=== PATIENT | female | born 1965 | race Caucasian/White ===

== ENCOUNTER 2017-04-01 12:17 | Emergency (ER) | payer OTHER ==
[2017-04-01 13:16] VITALS: BP 129/63
--- NOTE | 2017-04-01 14:47 | UC ---
Throat Pain/Nasal Ricardo HPI - HPI Summary HPI Summary: PRODUCTIVE COUGH SORE THROAT, EAR ACHE, CONGESTION, FOR TWO MONTHS. SMOKER, TRYING TO QUIT. NO FEVER. - History of Current Complaint Chief Complaint: UCRespiratory Stated Complaint: URI Time Seen by Provider: 04/01/17 13:20 Hx Obtained From: Patient Hx Last Menstrual Period: 2 months ago Onset/Duration: Gradual Onset, Lasting Weeks, Still Present Severity: Moderate Pain Intensity: 0 Pain Scale Used: 0-10 Numeric Cough: Productive Associated Signs & Symptoms: Positive: Hoarseness, Sinus Discomfort, Nasal Discharge - Epiglottits Risk Factors Epiglottis Risk Factors: Negative - Allergies/Home Medications Allergies/Adverse Reactions: Allergies Allergy/AdvReac Type Severity Reaction Status Date / Time Acesulfame Potassium Allergy Intermediate Unknown Verified 04/01/17 13:11 [From Suboxone] Reaction Details Buprenorphine [From Suboxone] Allergy Intermediate Unknown Verified 04/01/17 13: 11 Reaction Details Naloxone [From Suboxone] Allergy Intermediate Unknown Verified 04/01/17 13:11 Reaction Details novacaine Allergy Intermediate Unknown Uncoded 04/01/17 13:11 Reaction Details Home Medications: Home Medications Gabapentin CAP(*) [Neurontin 300 CAP(*)] 04/01/17 [History] PMH/Surg Hx/FS Hx/Imm Hx Previously Healthy: Yes - Surgical History Surgical History: Yes Surgery Procedure, Year, and Place: - Family History Known Family History: Negative: Cardiac Disease, Hypertension, Diabetes - Social History Occupation: Employed Part-time Lives: With Family Alcohol Use: None Substance Use Type: None Substance Use Comment - Amount & Last Used: "recovering heroin addict" last use 12/01/14 Smoking Status (MU): Current Every Day Smoker Amount Used/How Often: 1/2 PPD Review of Systems Constitutional: Negative Skin: Negative Eyes: Negative ENT: Ear Ache, Nasal Discharge, Sinus Congestion, Sinus Pain/Tenderness Respiratory: Cough Cardiovascular: Negative Gastrointestinal: Negative Genitourinary: Negative Motor: Negative Neurovascular: Negative Musculoskeletal: Negative Neurological: Negative Psychological: Negative Is Patient Immunocompromised?: No All Other Systems Reviewed And Are Negative: Yes Physical Exam Triage Information Reviewed: Yes Appearance: Well-Appearing, Well-Nourished Vital Signs: Initial Vital Signs Temp 98.3 F 04/01/17 13:12 Pulse 93 04/01/17 13:12 Resp 16 04/01/17 13:12 BP 129/63 04/01/17 13:12 Pulse Ox 100 04/01/17 13:12 Vital Signs Reviewed: Yes Eye Exam: Normal ENT: Positive: Hearing grossly normal, Pharynx normal, Nasal congestion, TM bulging, TM dull Dental Exam: Normal Neck exam: Normal Neck: Positive: Supple, Nontender Respiratory Exam: Other - COUGH Respiratory: Positive: Chest non-tender, Lungs clear, Normal breath sounds, No respiratory distress, No accessory muscle use Cardiovascular Exam: Normal Cardiovascular: Positive: RRR, No Murmur, Pulses Normal Abdominal Exam: Normal Musculoskeletal Exam: Normal Neurological Exam: Normal Psychological Exam: Normal Skin Exam: Normal Throat Pain/Nasal Course/Dx - Differential Dx/Diagnosis Differential Diagnosis/HQI/PQRI: Pharyngitis, Sinusitis, Tonsillitis, URI Provider Diagnoses: SINUSITIS; UPPER RESPIRATORY INFECTION Discharge - Discharge Plan Condition: Stable Disposition: HOME Prescriptions: Benzonatate CAP* [Tessalon 100 MG CAP*] 100 mg PO TID PRN #15 cap PRN Reason: Cough DOXYcycline CAP(*) [DOXYcycline 100MG CAP(*)] 100 mg PO BID #20 cap Patient Education Materials: Sinusitis (ED), Acute Bronchitis (ED) Referrals: Magan Arenas MD [Primary Care Provider] -
== END 2017-04-01 13:56 | disposition home or self-care (01) ==
LOC: UCEAST 12:17
DX: J06.9 Acute upper respiratory infection, unspecified (principal); J32.9 Chronic sinusitis, unspecified; F17.210 Nicotine dependence, cigarettes, uncomplicated
CPT/HCPCS: 99212; G0463

== ENCOUNTER 2018-05-28 10:19 | Day surgery (SDC) | payer OTHER ==
[~2018-05-28 10:19] MED LIST: Buffered Lidocaine 0.9% SYRIN* 5 ML/SYR SYRINGE INTRADERM ONE
[2018-05-28] MEDS ORDERED: Midazolam* 1 MG/ML 5 ML VIAL (5 MG) ONE (12:26)
[2018-05-28] MEDS ORDERED: Propofol* 10 MG/ML 20 ML BTL ONE (12:34)
[2018-05-28] MEDS ORDERED: Naloxone* 0.4 MG/ML 1 ML VIAL IV PRN (12:53)
[2018-05-28] MEDS ORDERED: Ondansetron INJ* 2 MG/ML VIAL IV PRN (12:53)
[2018-05-28 13:32] VITALS: BP 157/92
--- NOTE | 2018-05-29 00:29 | PRO ---
DATE OF PROCEDURE: 05/28/18 [facility] PROCEDURE: Colonoscopy. INDICATION: Diarrhea. REFERRING PHYSICIAN: Elena Ruiz MD MEDICATIONS GIVEN: Per Anesthesia. DESCRIPTION OF PROCEDURE: After the colonoscopy procedure including the risks, benefits, and alternatives not limited to perforation, surgery, and/or were explained to Mrs. Lamas; written consent was then obtained; IV medication was given; and a rectal exam was performed. The rectal exam was unremarkable. An Olympus colonoscope was then inserted into the patient's rectum and advanced very carefully through the entirety of the colon and into the distal terminal ileum. Distal few centimeters of the terminal ileal mucosa were unremarkable. The scope was then withdrawn to the cecal base. Careful and thorough inspection within the cecal base did not reveal any abnormality. Quality of the preparation was fair with liquid retained stool throughout the entirety entirety of the colon. The scope was then withdrawn in a very careful manner over the next 10 minutes throughout the remainder of the colon. Numerous random biopsies were taken to evaluate for microscopic colitis. The scope was then withdrawn into the rectum and reflexion maneuver was unremarkable. The scope was withdrawn from the patient. She tolerated the procedure well and was returned to the recovery room in stable condition. IMPRESSION: 1. Complete colonoscopy into the terminal ileum with biopsies. 2. Normal colonoscopy. 3. Repeat colonoscopy in 10 years from now. 4. Random biopsies to evaluate for microscopic colitis. 5. She should have a repeat colonoscopy in 10 years from now. [id number]/[facility] #: [id number]
== END 2018-05-28 13:54 | disposition home or self-care (01) ==
LOC: OR 10:19
PROVIDERS: ATTEND Internal Medicine Gastroenterology
DX: R19.7 Diarrhea, unspecified (principal); D64.9 Anemia, unspecified; I10 Essential (primary) hypertension; B18.2 Chronic viral hepatitis C; F41.8 Other specified anxiety disorders; F17.210 Nicotine dependence, cigarettes, uncomplicated
CPT/HCPCS: 88305; J2250; J2704